=== PATIENT | male | born 2005 | race Caucasian/White ===

== ENCOUNTER 2025-06-30 00:27 | Emergency (ER) | payer SELFPAY ==
--- NOTE | 2025-06-30 00:35 | ED_ITS ---
HPI - Male Genitourinary General Chief complaint: Urogenital-Male Stated complaint: Testicle Pain, Abdominal Pain Time Seen by Provider: 06/30/25 00:30 History of Present Illness HPI Narrative: 19-year-old male history of left sided testicular torsion back in 2002 presents tonight with right-sided testicle discomfort for which he did not take anything for it but wanted to get checked out. He denies any penile discharge, penile lesion, back pain, nausea, vomiting, diarrhea, constipation, dysuria, hematuria, fever, chills, bodyaches, or trauma to the area. He did report that he was boxing with his friends earlier in the week but got hit in the right upper chest region but no abdominal pain. Did have a bowel movement earlier that was normal in his passing gas. He just states that the right testicle does not feel right on it to get checked out in light of his history of testicular torsion on the left. Patient does also report smoking marijuana recreationally. Other than what is stated 14 point review of system is negative. Related Data Previous Rx's ?Medication ?Instructions ?Recorded polyethylene glycol 3350 17 17 g PO DAILY #510 grams 0 06/30/25 gram/dose oral powder (Miralax) Allergies Allergy/AdvReac Type Severity Reaction Status Date / Time No Known Drug Allergies Allergy Verified 06/30/25 00:41 Review of Systems Review of Systems ROS Unobtainable: All systems reviewed & are unremarkable except as noted in HPI and below Exam Narrative Exam Narrative: GENERAL: [19] year old patient appears stated age. Well-developed patient, in mild distress. HEAD: Atraumatic. Normocephalic. EYES: Pupils equal round and reactive. Extraocular motions intact. No scleral icterus. No injection or drainage. NECK: Trachea midline. Non tender CARDIOVASCULAR: Regular rate and rhythm without murmurs, gallops, or rubs. RESPIRATORY: Clear to auscultation. Breath sounds equal bilaterally. No wheezes, rales, or rhonchi. GASTROINTESTINAL: Abdomen soft, non-tender, nondistended. : Circumcised no lesions seen. No abnormal lie, no tenderness to epididymis on palpation, scrotum not show any lesions, no tenderness to palpation of the right testicle EXTREMITIES: No edema or joint tenderness. BACK: Nontender without deformity or crepitance. No flank tenderness. NEURO: AOx3. SKIN: No rash or erythema of visible areas [facility] - Male Genitourinary Imaging Data Extremity x-ray #1: Radiologist's Impression: Patient: Robin Morales MR#: [id number] : 2005 Acct:[id number] Age/Sex: 19 / M Date of Service: 06/30/25 Loc: ED Accession Number: [id number] Procedure: XR abdomen 3V Ordering Provider: Amor Briggs D.O. PROCEDURE: XR ABDOMEN 3V INDICATIONS: abd pain TECHNIQUE: Four views of the chest/ abdomen were acquired. COMPARISON: None. FINDINGS: Surgical changes and devices: None. Chest: Lungs are clear. Heart size is normal. No pleural effusions. No pneumoperitoneum. Abdomen: Bowel gas pattern is nonobstructive. No suspicious calcifications. Visualized solid organ contours appear normal. Stool is seen in the colon. Bones: No suspicious bony lesions. IMPRESSION: Nonobstructive bowel gas pattern. Stool predominantly within the right colon may represent constipation. No acute cardiopulmonary process. [facility] Narrative Medical decision making narrative: All lab work, vital signs, nurse triage note, medication list, previous ER v isits, and all imaging studies reviewed. UA was unremarkable. KUB showed constipation. Ultrasound showed normal right testicle. Differential diagnosis rib fracture, constipation, UTI, torsion, hydrocele, varicocele, epididymitis, STD, anxiety. D/c home on miralax rx Discharge Plan Departure Patient Disposition: Home Clinical Impression: Testicle pain Qualifiers: Laterality: right Qualified Code(s): N50.811 - Right testicular pain Constipation Qualifiers: Constipation type: slow transit constipation Qualified Code(s): K59.01 - Slow transit constipation Activity Restrictions/Additional Instructions: Return with new or worsening symptoms. Take medication as directed. Keep hydrated. Follow up with PCP this week no improvement in symptoms. Prescriptions: New polyethylene glycol 3350 [Miralax] 17 gram/dose powder 17 g PO DAILY Qty: 510 0RF Stand Alone Forms: Patient Portal/API
[2025-06-30 00:40] VITALS: BP 143/94; PULSE 88; RESP 17; TEMP 37.2; O2SAT 99; BMI 18.6
--- NOTE | 2025-06-30 00:41 | DI.US.S_ITS ---
PROCEDURE: US SCROTUM INDICATIONS: testicular pain TECHNIQUE: Real-time scanning was performed of the scrotum and testicles, with image documentation. Color and pulse Doppler interrogation was performed of both testicles. COMPARISON: None. FINDINGS: Right: Testicle is normal in size at 3.5 x 3.0 x 5.7 cm, and homogenous in echotexture. Epididymis is normal in overall size and morphology. No hydrocele or varicoceles. Overlying scrotal skin is normal in thickness. Left: Status post left orchiectomy. Doppler: Color and pulse Doppler demonstrate normal arterial flow in the right testicle. IMPRESSION: Status post left orchiectomy. No sonographic signs of right testicular torsion or epididymitis. Approved by: Willie Lockwood M.D. on 06/30/2025 at 8:33
--- NOTE | 2025-06-30 00:42 | DI.RAD.S_ITS ---
PROCEDURE: XR ABDOMEN 3V INDICATIONS: abd pain TECHNIQUE: Four views of the chest/ abdomen were acquired. COMPARISON: None. FINDINGS: Surgical changes and devices: None. Chest: Lungs are clear. Heart size is normal. No pleural effusions. No pneumoperitoneum. Abdomen: Bowel gas pattern is nonobstructive. No suspicious calcifications. Visualized solid organ contours appear normal. Stool is seen in the colon. Bones: No suspicious bony lesions. IMPRESSION: Nonobstructive bowel gas pattern. Stool predominantly within the right colon may represent constipation. No acute cardiopulmonary process. Approved by: Danii Watkins M.D.,Ph.D. on 06/30/2025 at 1:21
[2025-06-30 02:08] VITALS: BP 141/80; PULSE 85; RESP 17; O2SAT 99
== END 2025-06-30 02:08 | disposition home or self-care (01) ==
PROVIDERS: Emergency Provider Family Medicine
DX: N50.811 Right testicular pain (principal); K59.01 Slow transit constipation; R10.9 Unspecified abdominal pain
CPT/HCPCS: 74021; 76870; 81003; 93976; 99281; 99283